=== PATIENT | male | born 1985 ===

== ENCOUNTER 2016-11-06 11:17 | Inpatient (IN) | payer OTHER ==
[2016-11-06] MEDS ORDERED: Phenylephrine 10 mg/ml Inj ONE (11:20)
[2016-11-06] MEDS ORDERED: Midazolam 2 MG/2 ML VIAL ONE (11:21)
[2016-11-06] MEDS ORDERED: Nitroglycerin 50mg in D5W 0 MG/0 ML BOTTLE IV ONE (11:21)
[2016-11-06] MEDS ORDERED: Iodixanol 320 MG/ML 200 ML BOTTLE IV ONE (11:22)
[2016-11-06] MEDS ORDERED: Iodixanol 320 MG/ML 100 ML BOTTLE IV ONE (11:42)
[2016-11-06] MEDS ORDERED: EPINEPHrine 1 mg/ml (1:1000) Inj ONE (11:58)
--- NOTE | 2016-11-06 12:45 | CT ---
CTA chest PE protocol Indication: PE Technique: Contiguous axial images were obtained through the chest with intravenous contrast enhancement. Sagittal and coronal reconstructions were generated and reviewed. This CT exam was performed using 1 or more of the falling dose reduction techniques: Automated exposure control, adjustment of the MAA and/or kV according to patient size, and/or use of iterative reconstruction technique. IV Contrast: 100 mL Visipaque Radiation dose (DLP): 578.68 MGy-cm. Comparison: None available. Findings: Visualized portions of the inferior thyroid gland appear unremarkable. The mediastinal and hilar vascular structures appear within normal limits. The heart appears within normal limits of size. There is suboptimal opacification of the pulmonary arteries limiting evaluation for pulmonary embolus. Given this limitation, there are no visible intraluminal filling defects within the central pulmonary arteries to suggest central pulmonary embolism. Bilateral lower lobe consolidations. No pleural effusion. No pneumothorax. Limited visualized portions of the upper abdomen appear grossly unremarkable. Bilateral gynecomastia. No acute osseous abnormality is detected. Impression: Bilateral lower lobe consolidations. There is suboptimal opacification of the pulmonary arteries limiting evaluation for pulmonary embolus. Given this limitation, there are no visible intraluminal filling defects within the central pulmonary arteries to suggest central pulmonary embolism.
--- NOTE | 2016-11-06 14:12 | CP.PCM.HP ---
History of Present Illness - History of Present Illness History of Present Illness: COMPREHENSIVE HISTORY & PHYSICAL EXAM HPI 31 YEARS OLD PRESENTED TO ER 2 TIMES WITH CP WITH QUESTIONABLE EKG CHANGES OF ACUTE ST ELEVATION SC EMERGENCY CATH WAS VERBALISED TO BE NORMAL CT CHEST , NO LARGE CLOTS IN PA. PAST HIST. NONE RECENT TRAVEL IN [place] PERSONAL HIST: Smoking. N Alcohol. N Allergy N Travel_- . FAMILY HIST : ROS : Constitutional: Negative for weight change, chills, night sweats, fatigue and usage of assist device. Eyes: Negative for redness, swelling, itching, discharge, vision changes, blurry vision, double vision, glaucoma, cataracts, Ears: Negative for hearing loss, ringing, , tinnitus, vertigo Nose: Negative for rhinorrhea, stuffiness, sniffing, itching, postnasal drip, discoloration, nasal congestion and epistaxis. Throat: Negative for throat clearing, sore throat, hoarseness, difficulty swallowing and difficulty speaking. Respiratory: Negative for cough, , sputum production, chest tightness, wheezing, pleuritic chest pain ,daytime somnolence, chronic cough, hemoptysis, snoring at night, Cardiovascular: NO , PND, Edema of legs, leg cramps, angina, claudication, , irregular heartbeat, Neurology: Negative for irritability, muscle weakness, numbness and tingling, seizures, tremors, migraines, slurred speech, syncope, memory loss, mood changes , recurrent headaches Gastrointestinal: Negative for difficulty swallowing, diarrhea, constipation, black stools, rectal bleeding, nausea, flatulence, reflux, poor appetite, changes in bowel habits, abdominal pain Genitourinary: Negative for frequent urination, hematuria, discharge, incontinence, urinary retention, frequent UTI, Psychiatric: Negative for depression, anxiety/panic, suicidal tendencies, Musculoskeletal: Negative for swollen joints, back pain, , neck pain, morning stiffness of joints, . Skin: Negative for rash, ulcers, itching, dry skin and pigmented lesions. P/E: Constitutional: Appears stated age and in no apparent distress. Head: Normocephalic. Ears: External ear canals patent without inflammation. Tympanic membranes intact with normal light reflex and landmark. Eyes: Pupils are central, bilaterally equal, symmetrical and reacts to light with normal movements and no icterus or pallor. Nose: External nares are patent. Mucosa is pink Mouth-Throat: Good general appearance and condition. No post-pharyngeal/oropharyngeal erythema and tonsillar hypertrophy. Good dental hygiene. Neck-Lymphatic: Neck is supple with normal ROM, no thyromegaly, lymph nodes or masses. JVD is normal with no carotid bruit. Lungs: Clear to percussion and auscultation with bilateral normal air entry. Cardiovascular: S1 and S2 are normal with no murmurs, gallops and rub. GI Exam: No hepatomegaly. Abdomen is soft and non-tender. No Organomegaly , masses or hernias are evident and bowel sounds are normal and active. Neurology: Higher function and all cranial nerves intact, with no gross motor or sensory deficit. Superficial and deep reflexes are normal with downwards planters. No cerebellar deficit with normal gait. Musculoskeletal: No tender spots with normal curvature of the spine with no swelling or restricted ROM of the small and large joints. Extremities: Homans sign absent. Intact pulses with no pitting edema, calf tenderness or skin color changes. Skin: No rash, eruptions or abnormal skin pigmentation LAB/RADIOLOGY: ASSESMENT : R/O PERICARDITIS PLAN: SEE ORDERS Present on Admission - Present on Admission Any Indicators Present on Admission: No Past Patient History - Past Medical History & Family History Past Medical History?: Yes - Past Social History Smoking Status: Never Smoked - MUSCULOSKELETAL/RHEUMATOLOGICAL Hx Falls: No - PSYCHIATRIC Hx Substance Use: No - SURGICAL HISTORY Hx Surgeries: No - ANESTHESIA Hx Anesthesia: No Meds Allergies/Adverse Reactions: Allergies Allergy/AdvReac Type Severity Reaction Status Date / Time No Known Allergies Allergy Verified 11/06/16 01:03 Results - Vital Signs Recent Vital Signs: Last Vital Signs Temp Pulse 84 11/06/16 13:19 Resp 26 H 11/06/16 13:19 BP 140/88 11/06/16 12:52 Pulse Ox 100 11/06/16 13:19 - Labs Labs: Laboratory Results - last 24 hr 11/06/16 11:46 D-Dimer, Quantitative 211
[2016-11-06] MEDS: Sodium Chloride 0.9% 1,000 ML IV SCH (14:30)
[2016-11-06] MEDS ORDERED: Barium Sulfate for Susp 96% w/w 176g Bottle PR ONE (16:37)
--- NOTE | 2016-11-06 17:05 | CP.PCM.CON ---
History of Present Illness - History of Present Illness History of Present Illness: I was asked to provide interventional cardiology consultation. Patient is a 31 year old male with history of hypercholesterolemia who presented with chest pain. He had a long plane ride yesterday. He went to [facility] with complaints of chest pain. He was discharged however returned with recurrent symptoms. EKG revealed peaked T waves in the anterior leads. He was transferred for cardiac cathterization. Risks and benefits were discussed. 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 Review of Systems - Constitutional Constitutional: absent: As Per HPI, Anorexia, Chills, Daytime Sleepiness, Excessive Sweating, Fatigue, Fever, Frequent Falls, Headache, Increased Appetite , Lethargy, Malaise, Night Sweats, Snoring, Sleep Apnea, Weight Gain, Weight Loss, Weakness, Other - EENT Eyes: absent: As Per HPI, Blind Spots, Blurred Vision, Change in Vision, Decreased Night Vision, Diplopia, Discharge, Dry Eye, Exophthalmos, Floaters, Irritation, Itchy Eyes, Loss of Peripheral Vision, Pain, Photophobia, Requires Corrective Lenses, Sees Flashes, Spots in Vision, Tunnel Vision, Other Visual Disturbances, Loss of Vision, Other Ears: absent: As Per HPI, Decreased Hearing, Ear Discharge, Ear Pain, Tinnitus, Abnormal Hearing, Disequilibrium, Dizziness, Other Nose/Mouth/Throat: absent: As Per HPI, Epistaxis, Nasal Congestion, Nasal Discharge, Nasal Obstruction, Nasal Trauma, Nose Pain, Post Nasal Drip, Sinus Pain, Sinus Pressure, Bleeding Gums, Change in Voice, Dental Pain, Dry Mouth, Dysphagia, Halitosis, Hoarsness, Lip Swelling, Mouth Lesions, Mouth Pain, Odynophagia, Sore Throat, Throat Swelling, Tongue Swelling, Facial Pain, Neck Pain, Neck Mass, Other - Cardiovascular Cardiovascular: Chest Pain at Rest - Respiratory Respiratory: absent: As Per HPI, Cough, Dyspnea, Hemoptysis, Dyspnea on Exertion , Wheezing, Snoring, Stridor, Pain on Inspiration, Chest Congestion, Excessive Mucous Production, Change in Mucous Color, Pain with Coughing, Other - Gastrointestinal Gastrointestinal: absent: As Per HPI, Abdominal Pain, Belching, Bloating, Change in Bowel Habits, Change in Stool Character, Coffee Ground Emesis, Constipation, Cramping, Diarrhea, Dyspepsia, Dysphagia, Early Satiety, Excessive Flatus, Fecal Incontinence, Heartburn, Hematemesis, Hematochezia, Loose Stools, Melena, Nausea, Odynophagia, Temesmus, Vomiting, Other - Genitourinary Genitourinary: absent: As Per HPI, Change in Urinary Stream, Difficulty Urinating, Dysuria, Flank Pain, Hematuria, Pyuria, Nocturia, Urinary Incontinence, Urinary Frequency, Urinary Hesitance, Urinary Urgency, Voiding Freq/Small Amts, Freq UTI, Hx Renal/Bladder Calculi, Hx /Renal Surgery, Bladder Distension, Other - Musculoskeletal Musculoskeletal: absent: As Per HPI, Abnormal Gait, Arthralgias, Atrophy, Back Pain, Deformity, Joint Swelling, Limited Range of Motion, Loss of Height, Muscle Cramps, Muscle Weakness, Myalgias, Neck Pain, Numbness, Radiating Pain into Limb, Stiffness, Tingling, Other - Integumentary Integumentary: absent: As Per HPI, Acne, Alopecia, Bleeding Lesions, Change in Hair, Change in Nails, Change in Pigmentation, Changing Lesions, Dry Skin, Erythema, Furuncle, Hirsutism, Lesions, New Lesions, Non-Healing Lesions, Photosensitivity, Pruritus, Rash, Skin Pain, Skin Ulcer, Sores, Striae, Swelling , Unusual Bruising, Wounds, Jaundice, Other - Neurological Neurological: absent: As Per HPI, Abnormal Gait, Abnormal Hearing, Abnormal Movements, Abnormal Speech, Behavioral Changes, Burning Sensations, Confusion, Convulsions, Disequilibrium, Dizziness, Numbness, Focal Weakness, Frequent Falls , Headaches, Lack of Coordination, Loss of Vision, Memory Loss, Paresthesias, Radicular Pain, Restless Legs, Sensory Deficit, Syncope, Tingling, Tremor, Vertigo, Weakness, Other Visual Disturbances, Other - Psychiatric Psychiatric: absent: As Per HPI, Abnormal Sleep Pattern, Anhedonia, Anxiety, Auditory Hallucinations, Behavioral Changes, Change in Appetite, Change in Libido, Confusion, Depression, Difficulty Concentrating, Hallucinations, Homicidal Ideation, Hopelessness, Irritability, Memory Loss, Mood Swings, Panic Attacks, Paranoia, Suicidal Ideation, Visual Hallucinations, Tactile Hallucinations, Other - Endocrine Endocrine: absent: As Per HPI, Change in Body Appearance, Change in Libido, Cold Intolorance, Deepening of Voice, Excessive Sweating, Fatigue, Flushing, Heat Intolorance, Increase in Ring/Shoe/Hat Size, Palpitations, Polydipsia, Polyphagia, Polyuria, Other - Hematologic/Lymphatic Hematologic: absent: As Per HPI, Easy Bleeding, Easy Bruising, Lymphadenopathy, Other Past Patient History - Past Medical History & Family History Past Medical History?: Yes - Past Social History Smoking Status: Never Smoked - MUSCULOSKELETAL/RHEUMATOLOGICAL Hx Falls: No - PSYCHIATRIC Hx Substance Use: No - SURGICAL HISTORY Hx Surgeries: No - ANESTHESIA Hx Anesthesia: No Meds Allergies/Adverse Reactions: Allergies Allergy/AdvReac Type Severity Reaction Status Date / Time No Known Allergies Allergy Verified 11/06/16 01:03 - Medications Medications: Current Medications Sodium Chloride (Sodium Chloride 0.9%) 1,000 mls @ 75 mls/hr IV .[id number] EDWARD Last Admin: 11/06/16 14:30 Dose: 75 mls/hr Morphine Sulfate (Morphine) 2 mg IVP Q4 PRN PRN Reason: Pain, moderate (4-7) Physical Exam - Constitutional Appears: Toxic - Head Exam Head Exam: NORMAL INSPECTION - Eye Exam Eye Exam: Normal appearance - ENT Exam ENT Exam: Mucous Membranes Moist - Neck Exam Neck exam: Positive for: Full Rom - Respiratory Exam Respiratory Exam: NORMAL BREATHING PATTERN - Cardiovascular Exam Cardiovascular Exam: REGULAR RHYTHM - GI/Abdominal Exam GI & Abdominal Exam: Normal Bowel Sounds - Rectal Exam Rectal Exam: Deferred - Extremities Exam Extremities exam: Negative for: pedal edema - Back Exam Back exam: NORMAL INSPECTION - Neurological Exam Neurological exam: Alert, Oriented x3 - Psychiatric Exam Psychiatric exam: Normal Affect - Skin Skin Exam: Normal Color Results - Vital Signs Recent Vital Signs: Last Vital Signs Temp 98.8 F 11/06/16 12:52 Pulse 87 11/06/16 15:20 Resp 20 11/06/16 15:20 BP 126/78 11/06/16 15:17 Pulse Ox 95 11/06/16 15:20 - Labs Labs: Laboratory Results - last 24 hr 11/06/16 11/06/16 11:46 14:22 D-Dimer, Quantitative 211 Total Creatine Kinase 53 L CK-MB (Mass) < 0.22 Troponin I, Quant < 0.0120 - EKG Data EKG Interpreted by: Myself Assessment & Plan (1) Unstable angina Assessment and Plan: patient was taken for emergent cardiac catheterization revealing myocardial bridge. This is not likley the cause of the patient's symptoms. Recommend CT scan mukul to assess for PE. check echocardiogram. Status: Acute
--- NOTE | 2016-11-06 17:53 | RAD ---
Limited single contrast esophagram History: Diffuse esophageal spasm. Comparison: None available. Technique: Limited single contrast esophagram was performed. Findings: Upon swallowing contrast, contrast flowed through the esophagus. Tertiary contractions with esophageal spasm were noted predominantly in the mid and distal esophagus. Mild gastroesophageal reflux was noted. Question mild thickening of the esophageal mucosa; however, evaluation is limited on this single contrast study. Further evaluation with an upper GI endoscopy may be helpful for further evaluation if clinically indicated. Emergency Department view of the chest demonstrate mild venous congestion. Patchy atelectatic changes at left base. Right hilar prominence. Impression: Upon swallowing contrast, contrast flowed through the esophagus. Tertiary contractions with esophageal spasm were noted predominantly in the mid and distal esophagus. Mild gastroesophageal reflux was noted. Question mild thickening of the esophageal mucosa; however, evaluation is limited on this single contrast study. Further evaluation with an upper GI endoscopy may be helpful for further evaluation if clinically indicated.
--- NOTE | 2016-11-06 18:48 | CP.PCM.CON ---
<France Boswell - Last Filed: 11/06/16 18:45> History of Present Illness - History of Present Illness History of Present Illness: HPI: patient is a 31 year old male with no significant PMHx who presented to ICU as a Code Heart transfer from [facility]. Patient states that last night around 10:30pm after landing from a 6 hour flight from [place] he developed chest pressure and pain with breathing. He took taxi cab back to his apartment, lied down which did not alleviate his pain. He eventually went to [facility] where he states he had a scan, xray and other tests done which were all negative. He was discharged from [facility] around 3 am with antiacids. Upon returning home he states that the his symptoms did not resolve and worsened to "20/10 sharp pain" with severe pain on inspiration. Around 9:00 am he returned to [facility]. He was transfered to [facility] for cardiac catherization. On examination, he reports his chest pain is decreased but still present 5/10. He also reports headache. He denies fever, chills, vision changes, coughing, n/v/d/c, numbness, weakness/tingling. PMH: none PSH: none Allergies: none FH: Mother: "colon issues", Maternal aunt - brain cancer, Maternal side - DM, Father - denies Social Hx: drinks couple drinks of beer/wine about 4-5 days of the week. Used to smoke cigarettes in high school but has since quit. Denies illicit drug use. Review of Systems - Constitutional Constitutional: Headache. absent: Chills, Fever - EENT Eyes: absent: Blurred Vision, Change in Vision Ears: absent: Dizziness - Cardiovascular Cardiovascular: Chest Pain, Chest Pain at Rest. absent: Orthopnea, Palpitations , Paroxysmal Nocturnal Dyspnea, Pedal Edema - Respiratory Respiratory: Pain on Inspiration. absent: Dyspnea, Dyspnea on Exertion - Gastrointestinal Gastrointestinal: absent: Abdominal Pain, Cramping, Diarrhea, Nausea, Vomiting - Genitourinary Genitourinary: absent: Dysuria, Pyuria, Urinary Frequency - Musculoskeletal Musculoskeletal: absent: Numbness, Tingling - Neurological Neurological: Headaches. absent: Numbness, Syncope, Tingling, Weakness - Endocrine Endocrine: absent: Fatigue, Palpitations Past Patient History - Past Medical History & Family History Past Medical History?: Yes - Past Social History Smoking Status: Never Smoked - MUSCULOSKELETAL/RHEUMATOLOGICAL Hx Falls: No - PSYCHIATRIC Hx Substance Use: No - SURGICAL HISTORY Hx Surgeries: No - ANESTHESIA Hx Anesthesia: No Meds Allergies/Adverse Reactions: Allergies Allergy/AdvReac Type Severity Reaction Status Date / Time No Known Allergies Allergy Verified 11/06/16 01:03 - Medications Medications: Current Medications Diltiazem HCl (Cardizem) 60 mg PO QID [facility] Last Admin: 11/06/16 17:41 Dose: 60 mg Famotidine (Pepcid) 20 mg PO BID [facility] Sodium Chloride (Sodium Chloride 0.9%) 1,000 mls @ 75 mls/hr IV .[id number] [facility] Last Admin: 11/06/16 14:30 Dose: 75 mls/hr Morphine Sulfate (Morphine) 2 mg IVP Q4 PRN PRN Reason: Pain, moderate (4-7) Physical Exam - Head Exam Head Exam: ATRAUMATIC, NORMAL INSPECTION - Eye Exam Eye Exam: EOMI, Normal appearance Pupil Exam: PERRL - Respiratory Exam Respiratory Exam: Clear to Auscultation Bilateral, NORMAL BREATHING PATTERN - Cardiovascular Exam Cardiovascular Exam: REGULAR RHYTHM, +S1, +S2 - GI/Abdominal Exam GI & Abdominal Exam: Normal Bowel Sounds, Soft. absent: Distended, Tenderness - Extremities Exam Extremities exam: Positive for: normal capillary refill, normal inspection, pedal pulses present. Negative for: pedal edema - Neurological Exam Neurological exam: Alert, CN II-XII Intact, Oriented x3 - Psychiatric Exam Psychiatric exam: Normal Affect, Normal Mood - Skin Skin Exam: Normal Color, Warm Results - Vital Signs Recent Vital Signs: Last Vital Signs Temp 99.6 F 11/06/16 16:00 Pulse 84 11/06/16 17:00 Resp 23 11/06/16 17:00 BP 132/86 11/06/16 17:00 Pulse Ox 95 11/06/16 15:20 - Labs Labs: Laboratory Results - last 24 hr 11/06/16 11/06/16 11:46 14:22 D-Dimer, Quantitative 211 Total Creatine Kinase 53 L CK-MB (Mass) < 0.22 Troponin I, Quant < 0.0120 Assessment & Plan - Assessment and Plan (Free Text) Assessment: 31 year old with no significant PMHx presenting with chest pain and dyspnea, s/ p code heart transferred from [facility] and was noted to have Diffuse esophageal spasm on barium swallow and negative cardiac cath Plan: Neuro: no acute issues Cardio: Chest pain, atypical - Troponins & CKMB negative - EKG (11/06/16): 68 bpm, possible ST evelation in precordial V1-V4 leads. - Echo (11/06/16) pending official report. - Cardiology, Dr. Vallejo consulted - Cardiac cath was negative and barium showed diffuse esophageal spasm Medications: Morphine 2 mg IV Q4 prn Pulm: dyspnea - D-dimer negative (<211) - Chest CT angio (11/06/16): Bilateral lower lob consolidations. Suboptimal opacifications of the pulmonary arteries limiting evaluation for pulmonary embolus. No visible intraluminal filling defects within the central pulmonary arteries to suggest central pulmonary embolism. GI: diffuse esophageal spasm, GERD - Barium swallow study- Tertiary contraction with esophageal spasm were note predominantly in the mid and distal esophagus - Heart healthy diet Medications: - Pepcid 20 mg PO BID - Diltiazem 60 PO BID ID: f/u MRSA screen Prophylaxis: fluids: NS @ 75 cc/hr Scds, ambulating Plans: Transfer to telemetry tomorrow <Crow Arellano - Last Filed: 11/06/16 19:20> Meds - Medications Medications: Current Medications Diltiazem HCl (Cardizem) 60 mg PO QID [facility] Last Admin: 11/06/16 17:41 Dose: 60 mg Famotidine (Pepcid) 20 mg PO BID [facility] Sodium Chloride (Sodium Chloride 0.9%) 1,000 mls @ 75 mls/hr IV .[id number] [facility] Last Admin: 11/06/16 14:30 Dose: 75 mls/hr Morphine Sulfate (Morphine) 2 mg IVP Q4 PRN PRN Reason: Pain, moderate (4-7) Last Admin: 11/06/16 19:02 Dose: 2 mg Results - Vital Signs Recent Vital Signs: Last Vital Signs Temp 99.6 F 11/06/16 16:00 Pulse 83 11/06/16 18:00 Resp 23 11/06/16 18:00 BP 122/79 11/06/16 18:00 Pulse Ox 95 11/06/16 15:20 - Labs Labs: Laboratory Results - last 24 hr 11/06/16 11/06/16 11:46 14:22 D-Dimer, Quantitative 211 Total Creatine Kinase 53 L CK-MB (Mass) < 0.22 Troponin I, Quant < 0.0120 Attending/Attestation - Attestation I have personally seen and examined this patient.: Yes I have fully participated in the care of the patient.: Yes I have reviewed all pertinent clinical information: Yes Notes (Text): 11/06/16 19:11 I have seen and examined the patient. Medical records, lab studies, and imaging were reviewed by me and a management plan was formulated on multidisciplinary rounds with resident Dr. Boswell. I agree with their above documented assessment and plan. Patient has no PE, no CAD on coronary angiography, Diffuse esophageal spasm confirmed on barium swallow, started on calcium channel iliana. Patient should avoid excess alcohol to reduce GERD which can exacerbate REBECCA. Also stared on famotidine for GERD. Downgraded to Telemetry. Critical Care Time 35 minutes. Multi-disciplinary rounds were performed with house staff, nursing, speech therapy, respiratory therapy, pharmacy and nutrition with integrated input from the primary team/attending and other consulting services. The documented time is cumulative and includes review of patient data/exams/labs/chart review and examination of the patient on rounds and throughout the day; time is exclusive of any procedures or teaching time. 11/06/16 19:18
--- NOTE | 2016-11-06 22:39 | CARD ---
APPROVED REPORT EXAM: Two-dimensional and M-mode echocardiogram with Doppler and color Doppler. Other Information Quality : GoodRhythm : NSR INDICATION Pericardial Effusion R/o Pericardial Effusion/ Stemi 2D DIMENSIONS IVSd1.0 (0.7-1.1cm)LVDd4.4 (3.9-5.9cm) PWd1.1 (0.7-1.1cm)LVDs2.9 (2.5-4.0cm) FS (%) 33.3 %LVEF (%)62.1 (>50%) M-Mode DIMENSIONS Left Atrium (MM)2.88 (2.5-4.0cm)Aortic Root3.54 (2.2-3.7cm) Aortic Cusp Exc.2.56 (1.5-2.0cm) Mitral Valve MV E Dgqybcjr66.8cm/sMV A Hyxinhnf12.6cm/sE/A ratio1.3 TDI E/Lateral E'0.0E/Medial E'0.0 Tricuspid Valve TR Peak [id number]/sTR Peak Gr.[id number] LEFT VENTRICLE The left ventricle is normal size. There is borderline concentric left ventricular hypertrophy. Left ventricle systolic function is normal. The Ejection Fraction is 60-65%. There is normal LV segmental wall motion. The left ventricular diastolic function is normal. There is no ventricular septal defect visualized. RIGHT VENTRICLE The right ventricle is normal size. The right ventricular systolic function is normal. ATRIA The left atrium size is normal. The right atrium size is normal. AORTIC VALVE The aortic valve is tri-cuspid. The aortic valve is normal in structure. No aortic regurgitation is present. There is no aortic valvular stenosis. MITRAL VALVE The mitral valve is normal in structure. There is no evidence of mitral valve prolapse. There is no mitral valve regurgitation noted. TRICUSPID VALVE The tricuspid valve is normal in structure. There is trace tricuspid regurgitation. Right ventricular systolic pressure is estimated at less than 30 mmHg. There is no pulmonary hypertension. PULMONIC VALVE The pulmonary valve is normal in structure. There is no pulmonic valvular regurgitation. GREAT VESSELS The aortic root is normal in size. The ascending aorta is Mildly dilated. The IVC is normal in size and collapses >50% with inspiration. PERICARDIAL EFFUSION There is no pericardial effusion. <Conclusion> There is borderline concentric left ventricular hypertrophy. Left ventricle systolic function is normal. The Ejection Fraction is 60-65%. The left ventricular diastolic function is normal. The ascending aorta is Mildly dilated. There is no pericardial effusion.
[2016-11-07] MEDS: Sodium Chloride 0.9% 1,000 ML IV SCH ×3 (03:50→17:10)
[2016-11-07 07:04] LABS: BASO % 0.2 % (0.0-2.0); EOS % 0.5 % (0.0-4.0); HEMATOCRIT 41.6 % (35.0-51.0); LYMPH # 1.1 K/uL (1.0-4.3); MEAN CELL VOLUME 91.2 fL (80.0-94.0); MEAN CORPUSCULAR HEMOGLOBIN 31.6 pg (27.0-31.0); MEAN CORPUSCULAR HGB CONC 34.6 g/dL (33.0-37.0); MEAN PLATELET VOLUME 8.2 fL (7.2-11.7); MONO # 0.8 K/uL (0.0-0.8); MONO % 8.7 % (0.0-10.0); RED CELL DISTRIBUTION WIDTH 13.7 % (11.5-14.5)
[2016-11-07 07:33] LABS: CHLORIDE 100 mmol/L (98-107); SODIUM 139 mmol/L (132-148)
[2016-11-07 07:35] LABS: ALB/GLOB RATIO 1.3 (1.0-2.1); ALKALINE PHOSPHATASE 52 U/L (38-126); AST/SGOT 25 U/L (17-59); CARBON DIOXIDE 25 mmol/L (22-30); GFR AFRICAN-AMERICAN > 60; TOTAL PROTEIN 7.1 g/dL (6.3-8.3)
[2016-11-07 07:36] LABS: ALT/SGPT 34 U/L (21-72); BLOOD UREA NITROGEN 9 mg/dL (9-20); GLUCOSE,RANDOM 94 mg/dL (75-110); MAGNESIUM 1.9 mg/dL (1.6-2.3); PHOSPHOROUS 2.7 mg/dL (2.5-4.5)
--- NOTE | 2016-11-07 13:54 | CP.PCM.PN ---
Subjective - Date & Time of Evaluation Date of Evaluation: 11/07/16 Time of Evaluation: 13:46 - Subjective Subjective: NO FURTHER CP CATH : MILD MID LAD BRIDGING ECHO : NORMAL EF , NO PER. EFFUSION TNI MILDLY POS STILL POSSIBILITY OD VIRAL PERICARDITIS Objective - Vital Signs/Intake and Output Vital Signs (last 24 hours): Temp Pulse Resp BP Pulse Ox 98.2 F 80 20 123/79 96 11/07/16 07:00 11/07/16 07:00 11/07/16 07:00 11/07/16 07:00 11/07/16 07:00 Intake and Output: 11/07/16 11/07/16 11:59 23:59 Intake Total 450 Balance 450 - Medications Medications: Current Medications Diltiazem HCl (Cardizem) 60 mg PO QID [facility] Last Admin: 11/07/16 09:44 Dose: 60 mg Famotidine (Pepcid) 20 mg PO BID [facility] Last Admin: 11/07/16 09:44 Dose: 20 mg Sodium Chloride (Sodium Chloride 0.9%) 1,000 mls @ 75 mls/hr IV .[id number] [facility] Last Admin: 11/07/16 03:50 Dose: Not Given Morphine Sulfate (Morphine) 2 mg IVP Q4 PRN PRN Reason: Pain, moderate (4-7) Last Admin: 11/06/16 22:41 Dose: 2 mg - Labs Labs: 11/07/16 06:53 11/07/16 06:53
[2016-11-08] MEDS: Sodium Chloride 0.9% 1,000 ML IV SCH ×3 (06:44→20:34)
--- NOTE | 2016-11-08 14:18 | CP.PCM.PN ---
Subjective - Date & Time of Evaluation Date of Evaluation: 11/08/16 Time of Evaluation: 14:16 - Subjective Subjective: CP ON INSPIRATION PERICARDIAL RUB EKG SHOWS EARLY REPOLARISATION WITH INF SMALL Q WAVES PLAN VIRAL STUDIES NSAID Objective - Vital Signs/Intake and Output Vital Signs (last 24 hours): Temp Pulse Resp BP Pulse Ox 97.6 F 69 18 129/88 97 11/08/16 08:16 11/08/16 12:03 11/08/16 08:16 11/08/16 12:03 11/08/16 08:16 Intake and Output: 11/08/16 11/08/16 11:59 23:59 Intake Total 820 Balance 820 - Medications Medications: Current Medications Diltiazem HCl (Cardizem) 60 mg PO QID [facility] Last Admin: 11/08/16 09:15 Dose: Not Given Famotidine (Pepcid) 20 mg PO BID [facility] Last Admin: 11/08/16 09:11 Dose: 20 mg Sodium Chloride (Sodium Chloride 0.9%) 1,000 mls @ 75 mls/hr IV .[id number] [facility] Last Admin: 11/08/16 06:44 Dose: Not Given Ibuprofen (Motrin Tab) 400 mg PO Q8H [facility] Last Admin: 11/08/16 11:57 Dose: 400 mg Morphine Sulfate (Morphine) 2 mg IVP Q4 PRN PRN Reason: Pain, moderate (4-7) Last Admin: 11/06/16 22:41 Dose: 2 mg - Labs Labs: 11/07/16 06:53 11/07/16 06:53
[2016-11-09] MEDS: Sodium Chloride 0.9% 1,000 ML IV SCH (06:07)
--- NOTE | 2016-11-09 15:01 | CP.PCM.PN ---
Subjective - Date & Time of Evaluation Date of Evaluation: 11/09/16 Time of Evaluation: 14:59 - Subjective Subjective: A DETAILED DISCUSSION DONE WITH PT. 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 COME Objective - Vital Signs/Intake and Output Vital Signs (last 24 hours): Temp Pulse Resp BP Pulse Ox 98.1 F 90 18 132/78 97 11/09/16 08:00 11/09/16 14:50 11/09/16 08:00 11/09/16 14:50 11/09/16 08:00 Intake and Output: 11/09/16 11/09/16 11:59 23:59 Intake Total 750 Balance 750 - Medications Medications: Current Medications Diltiazem HCl (Cardizem) 60 mg PO QID [facility] Last Admin: 11/09/16 14:01 Dose: 60 mg Famotidine (Pepcid) 20 mg PO BID [facility] Last Admin: 11/09/16 10:33 Dose: 20 mg Sodium Chloride (Sodium Chloride 0.9%) 1,000 mls @ 75 mls/hr IV .[id number] [facility] Last Admin: 11/09/16 06:07 Dose: 75 mls/hr Ibuprofen (Motrin Tab) 400 mg PO Q8H [facility] Last Admin: 11/09/16 10:24 Dose: 400 mg Morphine Sulfate (Morphine) 2 mg IVP Q4 PRN PRN Reason: Pain, moderate (4-7) Last Admin: 11/06/16 22:41 Dose: 2 mg - Labs Labs: 11/07/16 06:53 11/07/16 06:53
[2016-11-09 16:18] VITALS: RESP 20
[2016-11-10 08:08] VITALS: O2SAT 96
--- NOTE | 2016-11-10 13:17 | CP.PCM.DIS ---
Provider - Provider Date of Admission: 11/06/16 11:18 Attending physician: Norman Ortega MD Time Spent in preparation of Discharge (in minutes): 35 Hospital Course - Lab Results Lab Results: Micro Results 11/07/16 09:00 Naris MRSA Culture - Final MRSA NOT DETECTED 11/06/16 Unknown [facility] MRSA Culture (Admit) - Final MRSA NOT DETECTED Most Recent Lab Values WBC 9.0 K/uL (4.8-10.8) 11/07/16 06:53 RBC 4.56 Mil/uL (4.40-5.90) 11/07/16 06:53 Hgb 14.4 g/dL (12.0-18.0) 11/07/16 06:53 Hct 41.6 % (35.0-51.0) 11/07/16 06:53 MCV 91.2 fL (80.0-94.0) 11/07/16 06:53 MCH 31.6 pg (27.0-31.0) H 11/07/16 06:53 MCHC 34.6 g/dL (33.0-37.0) 11/07/16 06:53 RDW 13.7 % (11.5-14.5) 11/07/16 06:53 Plt Count 293 K/uL (130-400) 11/07/16 06:53 MPV 8.2 fL (7.2-11.7) 11/07/16 06:53 Neut % (Auto) 78.6 % (50.0-75.0) H 11/07/16 06:53 Lymph % (Auto) 12.0 % (20.0-40.0) L 11/07/16 06:53 Lyman % (Auto) 8.7 % (0.0-10.0) 11/07/16 06:53 Eos % (Auto) 0.5 % (0.0-4.0) 11/07/16 06:53 Baso % (Auto) 0.2 % (0.0-2.0) 11/07/16 06:53 Neut # 7.1 K/uL (1.8-7.0) H 11/07/16 06:53 Lymph # 1.1 K/uL (1.0-4.3) 11/07/16 06:53 Lyman # 0.8 K/uL (0.0-0.8) 11/07/16 06:53 Eos # 0.0 K/uL (0.0-0.7) 11/07/16 06:53 Baso # 0.0 K/uL (0.0-0.2) 11/07/16 06:53 D-Dimer, Quantitative 211 ng/mlDDU (0-243) 11/06/16 11:46 Sodium 139 mmol/L (132-148) 11/07/16 06:53 Potassium 4.0 mmol/L (3.6-5.2) 11/07/16 06:53 Chloride 100 mmol/L (98-107) 11/07/16 06:53 Carbon Dioxide 25 mmol/L (22-30) 11/07/16 06:53 Anion Gap 18 (10-20) 11/07/16 06:53 BUN 9 mg/dL (9-20) 11/07/16 06:53 Creatinine 0.8 MG/DL (0.8-1.5) 11/07/16 06:53 Est GFR ( Amer) > 60 11/07/16 06:53 Est GFR (Non-Af Amer) > 60 11/07/16 06:53 Random Glucose 94 mg/dL (75-110) 11/07/16 06:53 Calcium 9.0 mg/dl (8.6-10.4) 11/07/16 06:53 Phosphorus 2.7 mg/dL (2.5-4.5) 11/07/16 06:53 Magnesium 1.9 mg/dL (1.6-2.3) 11/07/16 06:53 Total Bilirubin 1.0 mg/dL (0.2-1.3) 11/07/16 06:53 AST 25 U/L (17-59) 11/07/16 06:53 ALT 34 U/L (21-72) 11/07/16 06:53 Alkaline Phosphatase 52 U/L (38-126) 11/07/16 06:53 Total Creatine Kinase 104 U/L (55-170) 11/07/16 11:47 CK-MB (Mass) 4.99 ng/mL (0.0-3.38) H 11/07/16 11:47 Troponin I, Quant 3.9700 ng/mL (0.00-0.120) H* 11/07/16 11:47 Total Protein 7.1 g/dL (6.3-8.3) 11/07/16 06:53 Albumin 4.0 g/dL (3.5-5.0) 11/07/16 06:53 Globulin 3.1 gm/dL (2.2-3.9) 11/07/16 06:53 Albumin/Globulin Ratio 1.3 (1.0-2.1) 11/07/16 06:53 - Hospital Course Hospital Course: 31 YEARS OLD PRESENTED TO ER 2 TIMES WITH CP WITH QUESTIONABLE EKG CHANGES OF ACUTE ST ELEVATION [place] EMERGENCY CATH WAS VERBALISED TO BE NORMAL CT CHEST , NO LARGE CLOTS IN PA. PAST HIST. NONE RECENT TRAVEL IN [place] PER THE INT. CARDIOLOGY IT WAS NOT ACUTE ST ELEVATION CARDIAC CATH SHOWED NORMAL CORONARIES , MID LAD BRIDGING , NORMAL EF ECHO, NO PER. EFFUSION IT WAS CLINICALLY TREATED VIRAL PERICARDITIS DUE TO EKG CHANGES , AND CP ON INSPIRATION AND RELIEVED WITH SITTING UP AND PERICARDIAL RUB VIRAL STUDIES WERE PENDING PT IS D/C HOME ON NSAID AVOID STRENUOUS EXERTION AND EX FOR 2=3 WEEKS WILL REEVALUATE IN OFFICE Discharge Exam - Head Exam Head Exam: ATRAUMATIC, NORMAL INSPECTION Discharge Plan - Follow Up Plan Condition: GOOD Disposition: HOME/ ROUTINE
--- NOTE | 2016-11-10 15:46 | CP.PCM.PN ---
Subjective - Date & Time of Evaluation Date of Evaluation: 11/10/16 Time of Evaluation: 15:43 - Subjective Subjective: PT CLEARED FOR D/C HOME TODAY PER DR. HENRY. C/O CHEST "STABBING" THAT LASTS "A SECOND" EVERY 2-3 HOURS. DENIES SOB, DIZZINESS, ABD PAIN. PT FEELS COMFORTABLE OVERALL AND IN AGREEMENT WITH D/C PLAN. TO CONTINUE IBUPROFEN FOR 2 WEEKS. TO F/U WITH DR. HENRY IN THE OFFICE THIS WEEK BY THURSDAY OR THURSDAY. NO TRAVEL OR STRENUOUS ACTIVITY FOR 2 WEEKS. WORK NOTE PROVIDED TO PT. DISCUSSED D/C PLAN, F/U AND RX WITH PT AND AT BEDSIDE AT LENGTH. AWARE THAT LABS DONE ON 11/07/16 ARE STILL PENDING AND WILL F/U WITH RESULTS OP. NO FURTHER ORDERS. Objective - Vital Signs/Intake and Output Vital Signs (last 24 hours): Temp Pulse Resp BP Pulse Ox 97.8 F 43 L 20 109/71 96 11/10/16 07:00 11/10/16 07:00 11/10/16 07:00 11/10/16 07:00 11/10/16 07:00 Intake and Output: 11/10/16 11/10/16 06:59 18:59 Intake Total 1400 380 Output Total 450 Balance 950 380 - Medications Medications: Current Medications Diltiazem HCl (Cardizem) 60 mg PO QID [facility] Last Admin: 11/10/16 14:29 Dose: Not Given Famotidine (Pepcid) 20 mg PO BID [facility] Last Admin: 11/10/16 09:16 Dose: 20 mg Ibuprofen (Motrin Tab) 400 mg PO Q8H [facility] Last Admin: 11/10/16 10:00 Dose: Not Given - Labs Labs: 11/07/16 06:53 11/07/16 06:53
[2016-11-10 15:59] VITALS: BP 130/82; PULSE 73; TEMP 98
--- NOTE | 2016-11-11 13:58 | CARD ---
APPROVED REPORT EKG Measurement Heart [id number] <Conclusion> Sinus bradycardia with sinus arrhythmia Possible Inferior infarct, age undetermined Abnormal ECG
--- NOTE | 2016-11-11 22:09 | CARD ---
APPROVED REPORT EKG Measurement Heart [id number] <Conclusion> Normal sinus rhythm Nonspecific ST T abnormality Abnormal ECG
== END 2016-11-10 16:40 | disposition home or self-care (01) | DRG 287 ==
LOC: C.CATHLAB 11:17 → C.9I 11:18 → C.6T 11-07 01:10
PROVIDERS: ADMIT Internal Medicine Cardiovascular Disease; ATTEND Internal Medicine Cardiovascular Disease
PROC: 4A023N7 Measurement of Cardiac Sampling and Pressure, Left Heart, Percutaneous Approach (ICD-10-PCS; principal; 2016-11-06)
PROC: B2151ZZ Fluoroscopy of Left Heart using Low Osmolar Contrast (ICD-10-PCS; 2016-11-06)
PROC: B2111ZZ Fluoroscopy of Multiple Coronary Arteries using Low Osmolar Contrast (ICD-10-PCS; 2016-11-06)
DX: R07.89 Other chest pain (principal); K22.4 Dyskinesia of esophagus; E78.00 Pure hypercholesterolemia, unspecified; K21.9 Gastro-esophageal reflux disease without esophagitis; Z87.891 Personal history of nicotine dependence